=== PATIENT | male | born 1985 | race Caucasian/White ===

== ENCOUNTER 2024-06-24 14:26 | Emergency (ER) | payer OTHER, SELFPAY ==
[2024-06-24] MEDS ORDERED: DIAZEPAM 10 MG/2 ML INJ SYRINGE ONE (14:56)
[2024-06-24] MEDS ORDERED: NA CHLORIDE 0.9% 1,000 ML ONE (14:57)
[2024-06-24] MEDS ORDERED: KETOROLAC 30 MG/ML INJ ONE (14:57)
[2024-06-24 15:12] LABS: Absolute Basophils 0.1 K/uL (0-0.5); Absolute Eosinophils 0.1 K/uL (0-0.5); Absolute Lymphocytes (CBC) 1.6 K/uL (0.7-4.9); Absolute Monocytes 1.3 K/uL (0.1-1.3); Absolute Neutrophil 9.1 K/uL (1.8-8.0); Eosinophils % 1.1 % (0-4.4); Hematocrit 41.3 % (39.6-49.0); Hemoglobin 13.5 g/dL (13.6-17.9); Lymphocytes % 13.1 % (15.3-44.8); MCH 26.5 pg (27.0-35.0); MCHC 32.7 g/dL (32.0-36.0); MCV 81.1 fL (80-100); MPV 7.1 fL (7.6-11.3); Monocytes % 10.8 % (3.3-12.3); Platelets 432 thou/uL (152-406); RBC Red Blood Cell Count 5.09 M/uL (4.33-5.43); Red Cell Distribution Width 16.3 % (12.1-15.2)
[2024-06-24 15:29] LABS: Albumin/Globulin Ratio 0.8 (1.1-1.8); Anion Gap 11.1 mEq/L (5.0-15.0); Bilirubin Total 0.4 mg/dL (0.2-1.0); Globulin 3.7 g/dL (2.3-3.5); Potassium 4.1 mEq/L (3.5-5.1); Protein, Total 6.7 g/dL (6.4-8.2)
--- NOTE | 2024-06-24 15:30 | RAD REPORT ---
EXAMINATION: CT LUMBAR SPINE WITHOUT CONTRAST CLINICAL INDICATION: Back pain and numbness TECHNIQUE: Axial CT images were obtained through the lumbar spine in soft tissue and bone windows wit hout intravenous contrast. Coronal and Sagittal reformatted images were created from the data set. One or more of the following dose reduction techniques were used: Automated exposure control, adjustm ent of the mA and/ or kV according to patient size, and/or iterative reconstruction. Unless otherwise specified, incidental findings do not require dedicated imaging follow-up. COMPARISON: No prior exam. FINDINGS: For purposes of this dictation, it is assumed that there are 5 non rib-bearing lumbar type vertebrae, and the most caudal fully segmented lumbar vertebra is labeled L5. Mild anterior subluxation L5 on S1. Spondylolysis L5. Disc bulge is present. It is asymmetric and mor e prominent left laterally. Minimal to mild spondylosis remainder of the lumbar spine. No high-grade central/foraminal stenosis seen. No acute fracture. No dislocation . IMPRESSION: Mild anterior subluxation L5 on S1 with spondylolysis L5. No fracture seen.. No high-grade central/foraminal stenosis. If the patient continues to have symptoms to suggest spinal canal pathology then MRI would be recomm ended
--- NOTE | 2024-06-24 15:46 | RAD REPORT ---
EXAMINATION: Lumbar Spine 3 Views CLINICAL INDICATION: Back pain FINDINGS: Mild anterior subluxation L5 on S1. Spondylolysis L5 No acute fracture. No dislocation
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
[2024-06-24] MEDS ORDERED: HYDROCODONE/APAP 5/325 MG TAB ONE (16:31)
== END 2024-06-24 16:51 | disposition home or self-care (01) ==
LOC: ER 14:26
DX: M43.16 Spondylolisthesis, lumbar region (principal); S39.012A Strain of muscle, fascia and tendon of lower back, initial encounter
CPT/HCPCS: 96361; 85025; 36415; 80053; 72131; 72100; 96375; 96374; 99284; J3360; J7030

== ENCOUNTER 2024-07-03 19:35 | Emergency (ER) | payer OTHER ==
[2024-07-03 21:03] LABS: Absolute Basophils 0.1 K/uL (0-0.5); Absolute Eosinophils 0.2 K/uL (0-0.5); Absolute Lymphocytes (CBC) 1.9 K/uL (0.7-4.9); Absolute Monocytes 2.4 K/uL (0.1-1.3); Absolute Neutrophil 13.7 K/uL (1.8-8.0); Basophils % 0.6 % (0-1.3); Eosinophils % 0.8 % (0-4.4); Hematocrit 46.8 % (39.6-49.0); Hemoglobin 15.3 g/dL (13.6-17.9); Lymphocytes % 10.5 % (15.3-44.8); MCH 26.3 pg (27.0-35.0); MCHC 32.6 g/dL (32.0-36.0); MCV 80.5 fL (80-100); MPV 7.6 fL (7.6-11.3); Monocytes % 13.2 % (3.3-12.3); Neutrophils % 74.9 % (41.7-73.7); Platelets 414 thou/uL (152-406); RBC Red Blood Cell Count 5.81 M/uL (4.33-5.43)
[2024-07-03] MEDS ORDERED: FAMOTIDINE 20 MG/2 ML VIAL IV ONE (21:10)
[2024-07-03] MEDS ORDERED: DIPHENHYDRAMINE 50 MG/ML VIAL ONE (21:10)
[2024-07-03] MEDS ORDERED: METOCLOPRAMIDE 10 MG/2mL INJ ONE (21:10)
[2024-07-03] MEDS ORDERED: NA CHLORIDE 0.9% 1,000 ML ONE (21:10)
[2024-07-03 21:23] LABS: ALT/SGPT 40 U/L (16-61); Albumin 3.2 g/dL (3.4-5.0); Albumin/Globulin Ratio 0.7 (1.1-1.8); Alkaline Phosphatase 26 U/L (45-117); Anion Gap 9.7 mEq/L (5.0-15.0); BUN Blood Urea Nitrogen 12 mg/dL (7-18); Bicarbonate 28 mEq/L (21-32); Bilirubin Total 0.6 mg/dL (0.2-1.0); Globulin 4.7 g/dL (2.3-3.5); Glomerular Filtration Rate 69 ml/min (=/>90); Glucose Level 94 mg/dL (74-106); Protein, Total 7.9 g/dL (6.4-8.2); Sodium Level 133 mEq/L (136-145)
[2024-07-03 21:25] LABS: AST/SGOT 54 U/L (15-37); Bilirubin Direct < 0.2 mg/dL (0-0.2); Bilirubin Indirect, Calculated 0.4 mg/dL (0.2-0.8); Potassium 5.7 mEq/L (3.5-5.1)
--- NOTE | 2024-07-03 22:17 | RAD REPORT ---
EXAMINATION: CT Abdomen Pelvis W Contrast CLINICAL INDICATION: Male, 38 years old. ABD PAIN TECHNIQUE: CT abdomen and pelvis was performed, after the administration of IV contrast, as per [facility] protocol. Axial, sagittal and coronal reconstructions were obtained. One or more of the following dose reduction techniques were used: Automated exposure control, adjustment of the mA and k V according to patient size, and iterative reconstruction. Unless otherwise specified, incidental findings do not require dedicated imaging follow-up. COMPARISON: No prior exam. FINDINGS: LOWER CHEST: The visualized lung bases are clear. LIVER: Normal in size and contour. No focal lesion. BILIARY SYSTEM: No suspicious abnormalities. SPLEEN: Normal size. No focal lesion. PANCREAS: No mass, ductal dilation, or chris-pancreatic fluid. ADRENALS: Normal; no mass. KIDNEYS: Normal size and contour. No hydronephrosis. URINARY BLADDER: Unremarkable. GASTROINTESTINAL TRACT: Small to moderate hiatal hernia. No evidence of free air, significant intra-a bdominal free fluid, bowel obstruction or abscess. APPENDIX: Appendix surgically absent. LYMPH NODES: No lymphadenopathy. MUSCULOSKELETAL: No acute or suspicious osseous abnormality. ADDITIONAL FINDINGS: None. IMPRESSION: No acute or concerning abnormalities seen in the abdomen or pelvis.
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
--- NOTE | 2024-07-03 22:26 | EDPHYS ---
Physician Documentation [facility] Name: Gómez Johnson Age: 38 yrs Sex: Male : 1985 Arrival Date: 07/03/2024 Time: 19:35 Bed 15 Private MD: ED Physician Haim Albright HPI: 07/03 19:38 This 38 yrs old Male presents to ER via Unassigned with complaints of ec2 Abdominal Pain. 19:38 Patient arrives today for several months of abdominal pain along with nausea and ec2 vomiting. Reports history of reflux and this feels similar. States he is having pain in the upper abdomen radiating to the chest. Patient reports no specific alleviating or exacerbating factors. States that he has been taking some Tums as well as omeprazole with some alleviation symptoms, received Zofran with EMS and reports improvement in his nausea as well. He denies any specific pinpoint abdominal pain. Denies urinary complaints. Reports otherwise no significant medical problems.. Historical: - Allergies: 19:42 No Known Allergies; br2 - Home Meds: 19:42 None [Active]; br2 - Immunization history:: Adult Immunizations up to date. - Infectious Disease History:: Denies. - Social history:: Smoking status: Patient reports the use of cigarette tobacco products, denies chronic smoking, but will smoke occasionally. ROS: 19:38 Constitutional: as per hpi ec2 Exam: 19:38 Constitutional: GEN: NAD Head: atraumatic Eyes: EOMI Ears: External ears are ec2 normal. CV: regular rate LUNGS: no respiratory distress ABD: non-distended, soft, nontender, not guarding, not rigid SKIN: no evidence of rashes MSK: no evidence of trauma Vital Signs: 19:39 BP 146 / 98; Pulse 109; Resp 18; Temp 98.3(TE); Pulse Ox 100% on R/A; Weight 86.64 kg; br2 Height 5 ft. 10 in. ; Pain 6/10; 21:00 BP 137 / 89; Pulse 93; Resp 17; Pulse Ox 99% on R/A; rg5 22:19 BP 132 / 85; Pulse 87; Resp 17; Pulse Ox 99% on R/A; rg5 19:39 Body Mass Index 27.41 (86.64 kg, 177.8 cm) br2 19:39 Pain Scale: Adult br2 MDM: 19:36 Medical Screening Exam initiated ec2 19:38 Data reviewed: vital signs, nurses notes. ED course: Patient arrives today for ec2 evaluation of nausea and vomiting. Examination yields reassuring abdominal exam. Will obtain lab work to evaluate hydration status, will treat the patient with Protonix and crystalloid as well as Reglan for nausea medication. Differential diagnosis includes gastritis, ulcer, doubt pancreatitis.. 22:24 ED course: CT abdomen pelvis negative for any acute pathology. Suspect gastritis. Start ec2 the patient on Protonix have the patient follow-up PCP. Return precautions given.. 07/03 19:38 Order name: BMP; Complete Time: 21:27 ec2 07/03 19:38 Order name: CBC with Diff; Complete Time: 21:22 ec2 07/03 19:38 Order name: LFT's; Complete Time: 21:27 ec2 07/03 21:22 Order name: CT Abd/Pelvis - IV Contrast Only; Complete Time: 22:24 ec2 07/03 19:38 Order name: IV; Complete Time: 20:54 ec2 Administered Medications: 21:00 Drug: NS 0.9% IV 1000 ml IV at 1 bolus Per protocol; to be given as a bolus over 60 rg5 minutes Route: IV; Rate: 1 bolus; Site: left antecubital; 22:19 Follow up: IV Status: Completed infusion; IV Intake: 1000ml rg5 21:15 Drug: metoCLOPramide IVP 10 mg IVP once; over 1 to 2 minutes Route: IVP; Site: left rg5 antecubital; 22:18 Follow up: Response: No adverse reaction rg5 21:15 Drug: diphenhydrAMINE IVP 25 mg IVP once Route: IVP; Site: left antecubital; rg5 22:18 Follow up: Response: No adverse reaction rg5 21:15 Drug: Famotidine IVP 20 mg IVP once; dilute with 10 mL 0.9% NaCl; give over 2 minutes rg5 Route: IVP; Site: left antecubital; 22:18 Follow up: Response: No adverse reaction rg5 Disposition Summary: 07/03/24 22:25 Discharge Ordered Notes: Location: Home ec2 Condition: Stable ec2 Diagnosis - Acute gastritis ec2 Followup: ec2 - With: Dustin, Fab, MD - When: - Reason: Recheck today's complaints Discharge Instructions: - Discharge Summary Sheet ec2 - Gastritis, Adult, [id number]-[id number] ec2 Forms: - Medication Reconciliation Form ec2 - Antibiotic Education ec2 - Prescription Opioid Use ec2 - Patient Portal Instructions ec2 - Leadership Thank You Letter ec2 Prescriptions: - Protonix 40 mg Oral Tablet - take 1 tablet ORAL route once daily; 30 tablet; Refills: 0, Product Selection ec2 Permitted - Zofran 4 mg Oral Tablet - take 1 tablet ORAL route every 12 hours As needed; 20 tablet; Refills: 0, ec2 Product Selection Permitted Signatures: Dispatcher [employer] EDMS Haim Albright MD MD ec2 Lazarus Strauss, RN RN rg5 Aura Hackett RN RN br2 Corrections: (The following items were deleted from the chart) 19:38 19:38 BASIC METABOLIC PANEL+C.LAB.BRZ ordered. EDMS EDMS 19:38 19:38 CBC+H.LAB.BRZ ordered. EDMS EDMS
[2024-07-05 16:18] VITALS: BP 132/85; TEMP 98.3; O2SAT 99
== END 2024-07-03 22:36 | disposition home or self-care (01) ==
LOC: ER 19:35
DX: K29.00 Acute gastritis without bleeding (principal); F17.210 Nicotine dependence, cigarettes, uncomplicated
CPT/HCPCS: 96361; 85025; 80048; 36415; 80076; 74177; 96375; 96374; 99284; Q9967; J2765; J1200; J7030